=== PATIENT | female | born 1975 | race Caucasian/White ===

== ENCOUNTER 2022-06-26 11:14 | Emergency (ER) | payer OTHER ==
[2022-06-26 11:35] VITALS: BP 129/87; PULSE 80; RESP 18; TEMP 98.8; BMI 18.6
[2022-06-26] MEDS ORDERED: IBUPROFEN 600 MG TABLET (FP) PO ONE ×2 (11:55→12:10)
== END 2022-06-26 13:05 | disposition home or self-care (01) ==
LOC: FER 11:14
DX: S90.512A Abrasion, left ankle, initial encounter (principal); S99.912A Unspecified injury of left ankle, initial encounter; W01.0XXA Fall on same level from slipping, tripping and stumbling without subsequent striking against object, initial encounter
CPT/HCPCS: 73610-TC-LT-FY; 73630-TC-LT; 99283-25

== ENCOUNTER 2023-11-09 09:25 | Emergency (ER) | payer OTHER ==
[2023-11-09 09:40] VITALS: BP 124/80; PULSE 78; RESP 16; TEMP 98.9; BMI 18.8
== END 2023-11-09 10:06 | disposition home or self-care (01) ==
LOC: FER 09:25
PROC: 0HQGXZZ Repair Left Hand Skin, External Approach (ICD-10-PCS; principal; 2023-11-09)
DX: S61.211A Laceration without foreign body of left index finger without damage to nail, initial encounter (principal); W26.0XXA Contact with knife, initial encounter
CPT/HCPCS: 99282-25

== ENCOUNTER 2023-11-19 19:24 | Emergency (ER) | payer OTHER ==
[2023-11-19 19:32] VITALS: BP 106/71; PULSE 73; RESP 16; TEMP 98.7; BMI 18.8
== END 2023-11-19 19:42 | disposition home or self-care (01) ==
LOC: FER 19:24
DX: Z48.02 Encounter for removal of sutures (principal)
CPT/HCPCS: 99281-25